=== PATIENT | male | born 1995 | race Caucasian/White ===

== ENCOUNTER 2023-10-27 15:12 | Inpatient (IN) ==
[2023-10-27] MEDS: Morphine 4 MG/ML VIAL (1 ml) IV ONE (15:59)
[2023-10-27] MEDS ORDERED: HYDROmorphone 1 MG/1 ML SYRINGE IV PRN (16:58)
[2023-10-27] MEDS ORDERED: Ondansetron 4 mg VIAL 2 MG/ML 2 ml VIAL IV PRN (16:58)
[2023-10-27] MEDS: Propofol 10 MG/ML 20 ML BTL IV PUSH ONE (17:31)
[2023-10-27] MEDS: ceFAZolin 1 GM ADVAN 1 GM in NS 0.9% 50 ML 50 ML IVPB SCH (17:34)
[2023-10-27] MEDS: Acetaminophen IV 1 GM/100ML 1,000 MG/100 ML BAG IV SCH (17:36)
[2023-10-27] MEDS ORDERED: ceFAZolin 2 GM PREMIX 2 GM/50 ML BAG ONE (17:36)
[2023-10-27] MEDS ORDERED: Bupivacaine 0.25% SDV 30 ML ONE (17:53)
[2023-10-27] MEDS ORDERED: Propofol 10 MG/ML 20 ML BTL ONE (18:02)
[2023-10-27] MEDS ORDERED: Rocuronium 50 mg VIAL 10 mg/ml 5 ml VIAL (50 mg) ONE (18:02)
[2023-10-27] MEDS ORDERED: Lidocaine 2% PF 5 ML VIAL ONE (18:02)
[2023-10-27] MEDS ORDERED: fentaNYL 100 mcg/2 ml 50 MCG/ML VIAL ONE ×3 (18:02→21:47)
[2023-10-27] MEDS ORDERED: Dexamethasone IV 4 MG/ML VIAL 1 ml VIAL ONE (19:03)
[2023-10-27] MEDS ORDERED: Ondansetron 4 mg VIAL 2 MG/ML 2 ml VIAL ONE (19:03)
[2023-10-27] MEDS ORDERED: fentaNYL 250 mcg/5 ml 50 MCG/ML 5 ml VIAL (250 MCG) ONE (19:10)
[2023-10-27] MEDS: Lactated Ringers 1000 ml BAG 1,000 ML IV ONE (22:56)
[2023-10-28] MEDS: ceFAZolin 2 GM PREMIX 2 GM/50 ML BAG IV SCH (05:34)
[2023-10-28 07:58] LABS: ABS Lymphocytes 1.3 10^3/uL (1.0-4.8); ABS Monocytes 0.8 10^3/uL (0.0-1.1); ABS Neutrophils 4.4 10^3/uL (1.5-7.6); ABS Nucleated RBC 0.02 10^3/ul; Hematocrit 38.9 % (38-53); Hemoglobin 13.3 g/dL (13.2-16.3); Lymphocyte % 20.2 %; Mean Corpuscular Hemoglobin 28.7 pg (27-33); Mean Corpuscular Hgb Conc 34.2 g/dL (31-36); Mean Platelet Volume 8.9 fL (7.5-11.2); Nucleated Red Blood Cells % 0.3 %/100WBC (0.0-0.8); Platelet Count 198 10^3/uL (150-450); Red Blood Count 4.63 10^6/uL (4.06-5.63); Red Cell Distribution Width 13.3 % (12-17); White Blood Count 6.5 10^3/uL (3.6-10.2)
[2023-10-28 08:14] LABS: Calcium 8.5 mg/dL (8.6-10.3); Creatinine, Serum 0.7 mg/dL (0.67-1.17); Potassium 4.3 mmol/L (3.5-5.0); eGFR CKD-EPI 128.7 (>60)
[2023-10-28] MEDS ORDERED: ceFAZolin VIAL 2 GM in NS 0.9% 100 ml BAG 100 ML IVPB SCH (09:00)
[2023-10-28] MEDS ORDERED: Buprenorp/Nalox 8-2 MG FILM SL SCH (09:00)
[2023-10-28 11:01] LABS: Urine Appearance Clear; Urine Bilirubin Negative (Negative); Urine Blood Negative (Negative); Urine Color Colorless; Urine Glucose Negative (Negative); Urine Ketones 1+ (Negative); Urine Nitrite Negative (Negative); Urine Protein Negative (Negative); Urine Specific Gravity 1.012 (1.002-1.030); Urine Urobilinogen Negative (Negative)
[2023-10-28 11:19] LABS: Urine Benzodiazepine Screen None Detected (None Detect); Urine Cannabinoids Screen None Detected (None Detect); Urine Opiates Screen Presumptive Positive (None Detect)
[2023-10-28] MEDS: Enoxaparin 40 MG/0.4 ML SYR SUBCUT SCH (12:20)
[2023-10-29 05:20] LABS: Hematocrit 35.8 % (38-53); Hemoglobin 12.2 g/dL (13.2-16.3)
[2023-10-29] MEDS ORDERED: Naloxone Nasal Spray 4 MG/0.1 ML NASAL.SPR INTRANASAL PRN (09:19)
[2023-10-30 07:14] LABS: Hematocrit 36.5 % (38-53); Hemoglobin 12.4 g/dL (13.2-16.3)
[2023-10-30] MEDS: Amoxicillin/Clavul 875/125 TAB (Augmentin 875 tab) PO SCH (21:59)
[2023-11-02] MEDS: Senna TAB 8.6 mg TAB PO PRN (13:11)
[2023-11-02] MEDS: Magnesium Hydroxide LIQ 30 ML UDC PO PRN (13:11)
[2023-11-03 06:19] LABS: ABS Eosinophils 0.6 10^3/uL (0.0-0.5); ABS Lymphocytes 2.3 10^3/uL (1.0-4.8); ABS Neutrophils 4.4 10^3/uL (1.5-7.6); ABS Nucleated RBC 0.01 10^3/ul; Eosinophil % 7.3 %; Hematocrit 44.5 % (38-53); Hemoglobin 15.1 g/dL (13.2-16.3); Lymphocyte % 27.3 %; Mean Corpuscular Volume 85.2 fL (80-97); Mean Platelet Volume 8.1 fL (7.5-11.2); Nucleated Red Blood Cells % 0.1 %/100WBC (0.0-0.8); Platelet Count 236 10^3/uL (150-450); Red Blood Count 5.22 10^6/uL (4.06-5.63); Red Cell Distribution Width 13.7 % (12-17); White Blood Count 8.4 10^3/uL (3.6-10.2)
[2023-11-03 07:23] LABS: Calcium 9.6 mg/dL (8.6-10.3); Creatinine, Serum 0.67 mg/dL (0.67-1.17); Magnesium 2.2 mg/dL (1.9-2.7); eGFR CKD-EPI 130.4 (>60)
[2023-11-03] MEDS: Polyethylene Glycol 3350 17 GM PACKET PO SCH (08:52)
[2023-11-04] MEDS ORDERED: Dexamethasone IV 4 MG/ML VIAL 1 ml VIAL ONE (12:04)
[2023-11-04] MEDS ORDERED: Midazolam 5 mg/5 ml VIAL 1 mg/ml 5 ml VIAL (5 mg) ONE (12:04)
[2023-11-04] MEDS ORDERED: fentaNYL 100 mcg/2 ml 50 MCG/ML VIAL ONE (12:04)
[2023-11-04] MEDS ORDERED: Propofol 10 MG/ML 20 ML BTL ONE (12:04)
[2023-11-04] MEDS ORDERED: Ondansetron 4 mg VIAL 2 MG/ML 2 ml VIAL ONE (12:04)
[2023-11-04] MEDS ORDERED: Lidocaine 2% PF 5 ML VIAL ONE (12:04)
[2023-11-04] MEDS ORDERED: ceFAZolin 2 GM PREMIX 2 GM/50 ML BAG ONE (12:27)
[2023-11-04] MEDS ORDERED: ROPIVACAINE 5 MG/ML 30 ML BTL (0.5%) ONE ×2 (13:11→13:18)
[2023-11-04] MEDS ORDERED: Lactated Ringers 1000 ml BAG 1,000 ML IV SCH (17:06)
[2023-11-04 17:19] VITALS: BP 135/92
[2023-11-04] MEDS ORDERED: ceFAZolin 2 GM PREMIX 2 GM/50 ML BAG IV SCH (22:00)
== END 2023-11-04 21:15 | disposition home or self-care (01) | DRG 313 ==
LOC: ED 15:12 → SUATTDRO 17:07 → EDHOLD 17:07 → SSU 22:16
PROVIDERS: ADMIT Hospitalist; ATTEND Internal Medicine